=== PATIENT | female | born 1955 | race Caucasian/White ===

== ENCOUNTER 2016-10-11 10:48 | Emergency (ER) | payer BC ==
--- NOTE | 2016-10-11 13:00 | UC ---
Breast Complaint - HPI Summary HPI Summary: 1 day of erythema on left breast hurts to touch, no fevers - History of Current Complaint Hx Obtained From: Patient Breast Chief Complaint: Left, Inflammation - abscess at 8:00 Onset/Duration: Started Days Ago - 1, Atraumatic Timing: Constant Breast Pain Aggravating Factors: Palpation Breast Pain Alleviating Factors: Nothing Breast Associated Signs/Symptoms: Redness - Allergy/Home Medications Allergies/Adverse Reactions: Allergies Allergy/AdvReac Type Severity Reaction Status Date / Time No Known Allergies Allergy Verified 10/11/16 11:55 Home Medications: Home Medications Coenzyme Q10 (Ubidecarenone) [Co-Enzyme Q10] 200 mg PO DAILY 10/11/16 [History Confirmed 10/11/16] PMH/Surg Hx/FS Hx/Imm Hx Previously Healthy: Yes Endocrine History Of: Denies: Diabetes, Thyroid Disease Cardiovascular History Of: Denies: Cardiac Disorders, Hypertension Respiratory History Of: Denies: COPD, Asthma GI/ History Of: Denies: Ulcer - Surgical History Surgical History: Yes Surgery Procedure, Year, and Place: Uterine Ablation - Family History Known Family History: Positive: None Family History: denies cardiovascular/cancer in family lineage - Social History Occupation: Employed Full-time Lives: With Family Alcohol Use: None Substance Use Type: None Smoking Status (MU): Smoker, Current Status Unknown Amount Used/How Often: social Have You Smoked in the Last Year: Yes Cessation Counseling: Patient Advised to Stop Review of Systems Constitutional: Negative Skin: Negative Eyes: Negative ENT: Negative Respiratory: Negative Cardiovascular: Negative Gastrointestinal: Negative Genitourinary: Negative Motor: Negative Neurovascular: Negative Musculoskeletal: Negative, Myalgia - superficial tenderness and erythema left breast---first noticed to day Neurological: Negative Psychological: Negative All Other Systems Reviewed And Are Negative: Yes Physical Exam Triage Information Reviewed: Yes Appearance: Well-Appearing, No Pain Distress, Well-Nourished Vital Signs: Initial Vital Signs Temp 98.3 F 10/11/16 11:51 Pulse 91 10/11/16 11:51 Resp 16 10/11/16 11:51 BP 130/64 10/11/16 11:51 Pulse Ox 98 10/11/16 11:51 Vital Signs Reviewed: Yes Eye Exam: Normal Eyes: Positive: Conjunctiva Clear ENT Exam: Normal ENT: Positive: Normal ENT inspection, Hearing grossly normal. Negative: Nasal congestion, Nasal drainage, Trismus, Muffled/hoarse voice Dental Exam: Normal Neck exam: Normal Neck: Positive: Supple, Nontender, No Lymphadenopathy Respiratory Exam: Normal Respiratory: Positive: Chest non-tender, Lungs clear, Normal breath sounds, No respiratory distress, No accessory muscle use Cardiovascular Exam: Normal Cardiovascular: Positive: RRR, No Murmur, Pulses Normal, Brisk Capillary Refill Musculoskeletal Exam: Normal Musculoskeletal: Positive: Strength Intact, ROM Intact, No Edema Neurological Exam: Normal Neurological: Positive: Alert, Muscle Tone Normal Psychological Exam: Normal Skin Exam: Normal Diagnostics - Laboratory Diagnostic Studies Completed/Ordered: us---birads 3 abscess left breast Breast Pain Course/Dx - Course Assessment/Plan: bactrim, heat, tylenol, ibuprofen,follow with Surgeon October 23 at 9:30 - Differential Diagnoses Differential Diagnosis/HQI/PQRI: Breast Abscess, Mastitis - Diagnoses Provider Diagnoses: Left breast abscess, Nicotine abuse Is Visit Related: No Discharge - Discharge Plan Condition: Stable Disposition: HOME Prescriptions: Sulfamethox/Trimethoprim DS* [Bactrim DS 800/160 TAB*] 1 tab PO BID #20 tab Patient Education Materials: Breast Self Exam for Women (ED), Breast Cancer in Women (GEN), Abscess (ED), Heat Pack Application (ED) Referrals: [facility] [Provider Group] - 10/23/16 9:30 am Golden Hoang MD [Primary Care Provider] -
--- NOTE | 2016-10-11 13:49 | RAD ---
INDICATION: Skin lesion. Question abscess COMPARISON: None TECHNIQUE: Radial and antiradial scans of the left breast were performed using grayscale and color Doppler imaging. Imaging was performed the site skin changes. FINDINGS: There is an intradermal hypoechoic focus with internal echoes measuring 1.4 x 0.4 x 1.8 cm. There is flow on Doppler interrogation most prominent around the periphery but also within this hypoechoic focus. This suggests that there is phlegmonous change that may progress towards organized abscess. The findings are technically indeterminate, however, and require clinical evaluation and management. Suggest follow-up imaging in one month if the symptoms do not completely resolve following antibiotic therapy. Suggest clinical management with fine-needle aspiration based on palpation if there is persistent concern or lack of resolution. IMPRESSION: Suspect phlegmonous change/developing abscess in the subcutaneous tissues of the breast. Suggest close clinical and imaging follow-up. ASSESSMENT: ACR BIRADS Category 3: Probably Benign
[2016-10-11 15:20] VITALS: BP 115/76
== END 2016-10-11 15:06 | disposition home or self-care (01) ==
LOC: UCEAST 10:48
DX: N61.1 Abscess of the breast and nipple (principal); F17.200 Nicotine dependence, unspecified, uncomplicated
CPT/HCPCS: 99211; G0463

== ENCOUNTER 2017-10-05 12:00 | Emergency (ER) | payer BC ==
[2017-10-05] MEDS ORDERED: Ibuprofen TAB* 600 MG PO ONE (12:40)
--- NOTE | 2017-10-05 13:37 | RAD ---
INDICATION: RIGHT forearm, wrist, hand pain post fall. Comparison: No relevant prior exams available on the [facility] [place] for comparison. Technique: AP and lateral views of the RIGHT forearm, AP, lateral, and oblique views of the RIGHT wrist and hand. REPORT AND IMPRESSION: Nondisplaced transverse fracture through the distal metaphysis of the distal radius. Suggestion of extension of the fracture to the proximal margin of the distal radioulnar joint. Negative for loss of the normal volar tilt of the distal radioarticular surface. Negative for additional fracture at the forearm, wrist, or hand. Normal articular alignment throughout. Soft tissue swelling about the distal forearm, wrist, and hand.
--- NOTE | 2017-10-05 13:37 | RAD ---
INDICATION: RIGHT forearm, wrist, hand pain post fall. Comparison: No relevant prior exams available on the [facility] for comparison. Technique: AP and lateral views of the RIGHT forearm, AP, lateral, and oblique views of the RIGHT wrist and hand. REPORT AND IMPRESSION: Nondisplaced transverse fracture through the distal metaphysis of the distal radius. Suggestion of extension of the fracture to the proximal margin of the distal radioulnar joint. Negative for loss of the normal volar tilt of the distal radioarticular surface. Negative for additional fracture at the forearm, wrist, or hand. Normal articular alignment throughout. Soft tissue swelling about the distal forearm, wrist, and hand.
--- NOTE | 2017-10-05 13:37 | RAD ---
INDICATION: RIGHT forearm, wrist, hand pain post fall. Comparison: No relevant prior exams available on the [facility] PACS for comparison. Technique: AP and lateral views of the RIGHT forearm, AP, lateral, and oblique views of the RIGHT wrist and hand. REPORT AND IMPRESSION: Nondisplaced transverse fracture through the distal metaphysis of the distal radius. Suggestion of extension of the fracture to the proximal margin of the distal radioulnar joint. Negative for loss of the normal volar tilt of the distal radioarticular surface. Negative for additional fracture at the forearm, wrist, or hand. Normal articular alignment throughout. Soft tissue swelling about the distal forearm, wrist, and hand.
[2017-10-05 14:43] VITALS: BP 134/65
--- NOTE | 2017-10-05 18:30 | ED ---
Ramon Lopez Natalie, scribed for Xavier Mello MD on 10/05/17 at 1409 . Upper Extremity Pain - HPI Summary HPI Summary: The pt is a 62 y/o F presenting to the ED c/o pain in right arm above wrist s/p slipping and falling today. The pain is rated 4/10. The pain worsens by bending her wrist, and the fingers become stiff and numb when flexed. The pain is alleviated by rest. Pt additionally c/o swelling. Pt denies any injury to elbow. - History of Current Complaint Chief Complaint: EDExtremityUpper Stated Complaint: RT ARM INJURY Time Seen by Provider: 10/05/17 13:14 Hx Obtained From: Patient Hx Last Menstrual Period: Uterine Ablasion Mechanism Of Injury: Fall From A Standing Position Onset/Duration: Started Hours Ago, Still Present Severity Initially: Moderate Severity Currently: Moderate Pain Location: Other: - right arm above wrist Character: Aching, Stiffness Aggravating Factor(s): Movement, Flexion Alleviating Factor(s): Rest Associated Signs & Symptoms: Positive: Swelling, Other - NEGATIVE: injury to elbow - Allergies/Home Medications Allergies/Adverse Reactions: Allergies Allergy/AdvReac Type Severity Reaction Status Date / Time No Known Allergies Allergy Verified 10/05/17 12:22 Home Medications: Home Medications Multivitamins/Minerals TAB* [Theragran/minerals TAB*] 1 tab PO DAILY 10/05/17 [ History Confirmed 10/05/17] Ubidecarenone [Coq10] 200 mg PO DAILY 10/05/17 [History Confirmed 10/05/17] PMH/Surg Hx/FS Hx/Imm Hx Endocrine/Hematology History: Denies: Hx Diabetes, Hx Thyroid Disease Cardiovascular History: Denies: Hx Hypertension Respiratory History: Denies: Hx Asthma, Hx Chronic Obstructive Pulmonary Disease (COPD) GI History: Denies: Hx Ulcer - Surgical History Surgery Procedure, Year, and Place: Uterine Ablation Infectious Disease History: No Infectious Disease History: Denies: Hx Hepatitis, Hx Human Immunodeficiency Virus (HIV), Traveled Outside the [place] in Last 30 Days - Family History Known Family History: Negative: Cardiac Disease, Hypertension Family History: denies cardiovascular/cancer in family lineage - Social History Alcohol Use: None Substance Use Type: Reports: None Smoking Status (MU): Smoker, Current Status Unknown Amount Used/How Often: social Have You Smoked in the Last Year: Yes Review of Systems Negative: Fever Positive: Other - pain in right arm with swelling All Other Systems Reviewed And Are Negative: Yes Physical Exam Triage Information Reviewed: Yes Vital Signs On Initial Exam: Initial Vitals Temp Pulse Resp BP Pulse Ox 98.1 F 89 20 121/74 97 10/05/17 12:22 10/05/17 12:22 10/05/17 12:22 10/05/17 12:22 10/05/17 12:22 Vital Signs Reviewed: Yes Appearance: Positive: Well-Appearing, No Pain Distress Skin: Positive: Warm, Skin Color Reflects Adequate Perfusion, Dry Head/Face: Positive: Normal Head/Face Inspection Eyes: Positive: EOMI, GAMALIEL ENT: Positive: Normal ENT inspection Neck: Positive: Supple, Nontender Respiratory/Lung Sounds: Positive: Clear to Auscultation, Breath Sounds Present Cardiovascular: Positive: RRR Abdomen Description: Positive: Nontender, Soft Bowel Sounds: Positive: Present Musculoskeletal: Positive: Other - swollen distal right ulnar wrist tender to palpation, motion in tact, good pulses, positive capillary refill, good range of motion, elbow normal Neurological: Positive: Normal, Sensory/Motor Intact, Alert, Oriented to Person Place, Time Psychiatric: Positive: Affect/Mood Appropriate Procedures - Splinting Location: RT WRIST Hand-Made Type: fiberglass Splint: sugar-tong Pre-Proc Neuro Vasc Exam: normal Post-Proc Neuro Vasc Exam: normal Diagnostics - Vital Signs Vital Signs Temp Pulse Resp BP Pulse Ox 10/05/17 12:22 98.1 F 89 20 121/74 97 - Laboratory Lab Statement: Any lab studies that have been ordered have been reviewed, and results considered in the medical decision making process. - Radiology Right Wrist XR Xray Interpretation: Positive (See Comments) - Nondisplaced transverse fracture through the distal metaphysis of the distal radius. Suggestion of extension of the fracture to the proximal margin of the distal radioulnar joint. Negative for loss of the normal volar tilt of the distal radioarticular surface. Negative for additional fracture at the forearm, wrist, or hand. Normal articular alignment throughout. Soft tissue swelling about the distal forearm, wrist, and hand. ED physician has reviewed this report. Radiology Interpretation Completed By: Radiologist Right Forearm XR Xray Interpretation: Positive (See Comments) - Nondisplaced transverse fracture through the distal metaphysis of the distal radius. Suggestion of extension of the fracture to the proximal margin of the distal radioulnar joint. Negative for loss of the normal volar tilt of the distal radioarticular surface. Negative for additional fracture at the forearm, wrist, or hand. Normal articular alignment throughout. Soft tissue swelling about the distal forearm, wrist, and hand. ED physician has reviewed this report. Right Hand XR Xray Interpretation: Positive (See Comments) - Nondisplaced transverse fracture through the distal metaphysis of the distal radius. Suggestion of extension of the fracture to the proximal margin of the distal radioulnar joint. Negative for loss of the normal volar tilt of the distal radioarticular surface. Negative for additional fracture at the forearm, wrist, or hand. Normal articular alignment throughout. Soft tissue swelling about the distal forearm, wrist, and hand. ED physician has reviewed this report. Radiology Interpretation Completed By: Radiologist Course/Dx - Course Course Of Treatment: Medications reviewed. F/U ORTHOPEDICS. - Diagnoses Provider Diagnoses: Fracture of right distal radius Discharge - Sign-Out/Discharge Documenting (check all that apply): Discharge - Discharge Plan Condition: Stable Disposition: HOME Discharge Disposition Comment: The pt will be discharged home under stable conditions. Patient Education Materials: Wrist Fracture in Adults (ED), Splint Care (ED) Referrals: [facility] [Outside] Josiah Goel MD [Medical Doctor] - Golden Hoang MD [Primary Care Provider] - Additional Instructions: FOLLOW UP WITH ORTHOPEDICS. RETURN TO THE EMERGENCY DEPARTMENT FOR ANY WORSENING OF YOUR CONDITION OR QUESTIONS OR CONCERNS. - Billing Disposition and Condition Condition: STABLE Disposition: HOME The documentation as recorded by the Ramon mireles Natalie accurately reflects the service I personally performed and the decisions made by me, Xavier Mello MD.
== END 2017-10-05 14:41 | disposition home or self-care (01) ==
LOC: ED 12:18
DX: S52.501A Unspecified fracture of the lower end of right radius, initial encounter for closed fracture (principal); W01.0XXA Fall on same level from slipping, tripping and stumbling without subsequent striking against object, initial encounter; Y92.9 Unspecified place or not applicable; M79.601 Pain in right arm; Z72.0 Tobacco use
CPT/HCPCS: 99282; A9270-GY

== ENCOUNTER 2018-12-21 15:28 | Emergency (ER) | payer BC ==
--- NOTE | 2018-12-21 15:39 | UC ---
Bite Injury/Animal HPI - HPI Summary HPI Summary: 63-year-old woman comes in with a chief complaint of 2 tick bites. One is on the left chest and one was on her left hip. There has been removed the tick's. She's not sure how long that were in there. No rash no fevers no chills feels well otherwise. - History of Current Complaint Stated Complaint: TICK BITE Time Seen by Provider: 12/21/18 15:31 Hx Last Menstrual Period: Uterine Ablasion - Allergies/Home Medications Allergies/Adverse Reactions: Allergies Allergy/AdvReac Type Severity Reaction Status Date / Time No Known Allergies Allergy Verified 12/21/18 15:41 PMH/Surg Hx/FS Hx/Imm Hx Previously Healthy: Yes - Surgical History Surgical History: Yes Surgery Procedure, Year, and Place: Uterine Ablation - Family History Known Family History: Positive: None, Non-Contributory Negative: Cardiac Disease, Hypertension Family History: denies cardiovascular/cancer in family lineage - Social History Alcohol Use: None Substance Use Type: None Smoking Status (MU): Smoker, Current Status Unknown Amount Used/How Often: social Have You Smoked in the Last Year: Yes Review of Systems All Other Systems Reviewed And Are Negative: Yes Constitutional: Positive: Negative Skin: Positive: Other - SEE HPI Eyes: Positive: Negative ENT: Positive: Negative Respiratory: Positive: Negative Cardiovascular: Positive: Negative Gastrointestinal: Positive: Negative Motor: Positive: Negative Neurovascular: Positive: Negative Musculoskeletal: Positive: Negative Neurological: Positive: Negative Psychological: Positive: Negative Is Patient Immunocompromised?: No Physical Exam Triage Information Reviewed: Yes Appearance: Well-Appearing, No Pain Distress, Well-Nourished Vital Signs Reviewed: Yes Eye Exam: Normal Eyes: Positive: Conjunctiva Clear Neck: Positive: Supple Respiratory: Positive: No respiratory distress Musculoskeletal: Positive: Strength Intact, ROM Intact Neurological: Positive: Alert Psychological: Positive: Age Appropriate Behavior Skin: Positive: Other - TWO PUNCTATE ERYTHEMATOUS SKIN LESIONS, FIRST ON MID THORACIC LEFT BACK WHICH MAY HAVE A 1MM FB IN IT. SECOND OVER THE LEFT HIP WITHOUT APPARENT FB. NO BULLS EYE RASH. Bite Injury Course/Dx - Course Course Of Treatment: PATIENT PREFERS TO HAVE DOXY RX FOR TREATMENT TO USE IF NEEDED SHE IS [place]AC[place]. AT THIS TIME THE PLAN IS A SINGLE DOSE OF DOXY 200MG ONCE. - Differential Dx/Diagnosis Provider Diagnosis: Tick bite Discharge - Sign-Out/Discharge Documenting (check all that apply): Patient Departure All imaging exams completed and their final reports reviewed: No Studies - Discharge Plan Condition: Stable Disposition: HOME Prescriptions: DOXYcycline CAP(*) [DOXYcycline 100MG CAP(*)] 100 mg PO BID #30 cap Patient Education Materials: Tick Bite (ED) Referrals: Golden Hoang MD [Primary Care Provider] - Additional Instructions: FOLLOW UP WITH YOUR DOCTOR IF NOT COMPLETELY IMPROVED. GET RECHECKED SOONER IF YOUR CONDITION WORSENS; BULLS EYE RASH, SYMPTOMS OF LYME DISEASE OR ANY QUESTIONS OR CONCERNS. - Billing Disposition and Condition Condition: STABLE Disposition: Home
[2018-12-21 15:41] VITALS: BP 123/77
== END 2018-12-21 16:08 | disposition home or self-care (01) ==
LOC: UCEAST 15:28
DX: T63.481A Toxic effect of venom of other arthropod, accidental (unintentional), initial encounter (principal); Y92.9 Unspecified place or not applicable; F17.210 Nicotine dependence, cigarettes, uncomplicated
CPT/HCPCS: 99212; G0463

== ENCOUNTER 2019-07-06 08:37 | Day surgery (SDC) | payer BC ==
[~2019-07-06 08:37] MED LIST: Buffered Lidocaine 1% SYRIN* 1 ML/SYRINGE INTRADERM ONE; Lactated Ringers 1000 ML Bag* 1,000 ML IV SCH; ceFAZolin 2 GM in NS PREMIX(*) 2 GM/100 ML BAG IVPB ONE
[2019-07-06] MEDS ORDERED: Bupivacaine 0.25% SDV* 30 ML ONE (09:53)
[2019-07-06] MEDS ORDERED: Midazolam* 1 MG/ML 5 ML VIAL (5 MG) ONE (10:05)
[2019-07-06] MEDS ORDERED: fentaNYL* 50 MCG/ML 2 ML VIAL (100 MCG VIAL) ONE (10:13)
[2019-07-06] MEDS ORDERED: Midazolam* 1 MG/ML 2 ML VIAL (2 MG) ONE (10:29)
--- NOTE | 2019-07-06 10:58 | BRIEFOPN ---
Brief Operative/Procedure Note - Operation Details Pre-Op Diagnosis: Breast CA Post-Op Diagnosis: Breast CA Procedures: Power port placement- left Surgeon(s)/Proceduralists: Dr. Heath. Assist: SABINE Alaniz Anesthesia: MAC Estimated Blood Loss: <50 Findings: As above Specimen(s)/Culture(s) Description: None Complications: None
[2019-07-06] MEDS ORDERED: Acetaminophen TAB* 325 MG ONE (11:23)
[2019-07-06 11:35] VITALS: BP 137/79
--- NOTE | 2019-07-06 21:22 | OP ---
OPERATIVE REPORT: DATE OF OPERATION: 07/06/19 - SDS DATE OF : 59 SURGEON: Gaudencio Heath MD ANESTHESIOLOGIST: Onesimo Thrasher MD ANESTHESIA: MAC. AMUSEMENT MACHINE MECHANIC: SABINE Hernández PRE-OP DIAGNOSIS: Breast cancer. POST-OP DIAGNOSIS: Breast cancer. OPERATIVE PROCEDURE: Placement of left subclavian approach PowerPort. INDICATIONS FOR PROCEDURE: Breast cancer requiring port placement for treatment. Risks included, but not limited to bleeding, infection, and pneumothorax explained to the patient, who seemed to understand and agreed to the procedure and all questions were answered. DESCRIPTION OF PROCEDURE: The patient was taken to the operating room and placed supine. Preoperative antibiotics were given. After successful induction of sedation, time-out was performed. After that, the patient was prepped and draped in sterile fashion, this indicating correct patient and correct procedure. A needle was placed in the left subclavian vein and using Seldinger technique, a wire was passed directed to the superior vena cava, identified on fluoroscopy. The needle was removed. The tract was dilated. A split sheath was placed over the wire. The wire was removed. The catheter was advanced down towards the superior vena cava. It was then tunneled under the skin to a subcutaneous pocket in the left upper chest. It aspirated blood easily and flushed with heparinized saline. The pocket was closed in layers using 3-0 Monocryl. Glue was applied to the skin. She tolerated the procedure well. She was taken to the recovery room in stable condition. [id number]/CPS #: [id number] MTDD
== END 2019-07-06 12:10 | disposition home or self-care (01) ==
LOC: OR 08:37
PROVIDERS: ATTEND Surgery
DX: C50.411 Malignant neoplasm of upper-outer quadrant of right female breast (principal)
CPT/HCPCS: 71045; 76000; A9270-GY; C1788; J0690; J1642; J2250; J3010; J3490